=== PATIENT | male | born 1950 | race Caucasian/White ===

== ENCOUNTER 2017-02-15 12:20 | Emergency (ER) | payer BC ==
[2017-02-15 12:49] VITALS: BP 150/90
--- NOTE | 2017-02-15 12:58 | UC ---
Palpitation/Dysrhythmia HP - HPI Summary HPI Summary: 66 yo male with palpitations since last PM has had frequent palpitations in the past...they have never lasted this long no CP no SOB no weakness was able to do his usual one hour work out on an exercise bike this AM no recent URI symptoms HTN for a while for which he has tried herbal supplements - History of Current Complaint Chief Complaint: UCCardiac Stated Complaint: HEART PALPITATIONS Time Seen by Provider: 02/15/17 12:32 Hx Obtained From: Patient Onset/Duration: Sudden Onset, Lasting Hours Timing: Constant Severity Initially: Mild Severity Currently: Mild Pain Intensity: 0 Pain Scale Used: 0-10 Numeric Character: Skipped Beats Aggravating Factor(s): Nothing Alleviating Factor(s): Nothing Associated Signs & Symptoms: Positive: Negative - Allergy/Home Medications Allergies/Adverse Reactions: Allergies Allergy/AdvReac Type Severity Reaction Status Date / Time Tetracycline Allergy Nausea And Verified 02/15/17 12:31 Vomiting PMH/Surg Hx/FS Hx/Imm Hx Endocrine History Of: Denies: Diabetes, Thyroid Disease Cardiovascular History Of: Denies: Cardiac Disorders, Hypertension Respiratory History Of: Denies: COPD, Asthma - Surgical History Surgical History: Yes Surgery Procedure, Year, and Place: Right Ankle Repair - Family History Known Family History: Positive: Hypertension Negative: Cardiac Disease, Diabetes - Social History Alcohol Use: Occasionally Substance Use Type: None Smoking Status (MU): Former Smoker Review of Systems Constitutional: Negative Skin: Negative Eyes: Negative ENT: Negative Respiratory: Negative Cardiovascular: Palpitations Gastrointestinal: Negative Genitourinary: Negative Motor: Negative Neurovascular: Negative Musculoskeletal: Negative Neurological: Negative Psychological: Negative All Other Systems Reviewed And Are Negative: Yes Physical Exam Triage Information Reviewed: Yes Appearance: Well-Appearing, No Pain Distress, Well-Nourished Vital Signs: Initial Vital Signs Temp 99.2 F 02/15/17 12:25 Pulse 110 02/15/17 12:25 Resp 16 02/15/17 12:25 BP 193/93 02/15/17 12:25 Pulse Ox 96 02/15/17 12:25 Vital Signs Reviewed: Yes Eyes: Positive: Conjunctiva Clear ENT: Positive: Hearing grossly normal. Negative: Nasal congestion, Nasal drainage, Trismus, Muffled/hoarse voice Neck: Positive: Supple, Nontender, No Lymphadenopathy Respiratory: Positive: Chest non-tender, Lungs clear, Normal breath sounds, No respiratory distress, No accessory muscle use Cardiovascular: Positive: RRR, No Murmur Musculoskeletal: Positive: ROM Intact, No Edema Neurological: Positive: Alert Psychological Exam: Normal Skin Exam: Normal Diagnostics - EKG Cardiac Rate: Tachycardia Cardiac Rhythm: Sinus: Normal Ectopy: None ST Segment: Normal Palpitations Course/Dx - Differential Dx/Diagnosis Provider Diagnoses: palpitations. hypertension Discharge - Discharge Plan Condition: Stable Disposition: HOME Prescriptions: Nifedipine [Procardia Xl] 30 mg PO DAILY #30 tab Patient Education Materials: Palpitations (ED), Hypertension (ED) Referrals: Janna Garduno MD [Primary Care Provider] - Additional Instructions: see your MD this week recheck for chest pain/shortness of breath/feeling faint
[2017-02-15 16:22] LABS: Hematocrit 47 % (42-52); Hemoglobin 15.6 g/dl (14.0-18.0); Mean Corpuscular HGB Conc 34 g/dl (31-36); Mean Corpuscular Hemoglobin 30 pg (27-31); Mean Corpuscular Volume 88 fL (80-94); Mean Platelet Volume 9 um3 (7.4-10.4); Red Blood Count 5.29 10^6/ul (4.0-5.4); Red Cell Distribution Width 13 % (10.5-15)
[2017-02-15 16:38] LABS: TSH (Thyroid Stimulating Horm) 2.57 mcIU/mL (0.34-5.60)
[2017-02-15 16:40] LABS: BUN/Creatinine Ratio 12.4 (8-20); Calcium 9.2 mg/dL (8.6-10.3); EGFR Non-African American 65.3 (>60); Globulin 2.6 g/dL (2-4); Total Bilirubin 0.5 mg/dL (0.2-1.0); Total Protein 6.6 g/dL (6.4-8.9)
== END 2017-02-15 13:16 | disposition home or self-care (01) ==
LOC: UCEAST 12:20
DX: R00.2 Palpitations (principal); I10 Essential (primary) hypertension; Z88.1 Allergy status to other antibiotic agents; Z87.891 Personal history of nicotine dependence
CPT/HCPCS: 36415; 80053; 84443; 85025; 93005; 99202; G0463

== ENCOUNTER 2018-11-04 18:55 | Emergency (ER) | payer BC ==
--- NOTE | 2018-11-04 19:13 | UC ---
Respiratory Complaint HPI - HPI Summary HPI Summary: 68 y/o male presents to the urgent care c/o chest congestion w/ persistent productive cough for the past 2 week. Pt reports he has noticed this intermitting persistent cough several times during the year since he returned from [place] 10 years ago. Pt reports he produces a yellowish phlegm at times. Mild nasal congestion. He feels at times he can perform deep breathing. Pt has not taking anything to alleviate symptoms. Pt denies fever, PINON, dizziness , Chest pain, abdominal pain, N/V/D, visual changes. - History of Current Complaint Stated Complaint: CHEST CONGESTION Time Seen by Provider: 11/04/18 19:11 Hx Obtained From: Patient Onset/Duration: Gradual Onset, Lasting Weeks - 2 weeks, Still Present Timing: Intermittent Episodes Severity Initially: Mild Severity Currently: Moderate Pain Intensity: 0 Pain Scale Used: 0-10 Numeric Character: Cough: Productive, Sputum Description: - yellowish at times Aggravating Factors: Recumbent Position Alleviating Factors: Nothing Associated Signs And Symptoms: Positive: URI, Nasal Congestion - clear, Sinus Discomfort. Negative: Fever, Chills, Wheezing - Risk Factors Pulmonary Embolism Risk Factors: Negative Cardiac Risk Factors: Negative Pseudomonas Risk Factors: Negative Tuberculosis Risk Factors: Negative - Allergies/Home Medications Allergies/Adverse Reactions: Allergies Allergy/AdvReac Type Severity Reaction Status Date / Time tetracycline Allergy Nausea Verified 11/04/18 19:14 Home Medications: Home Medications amLODIPine TAB* [Norvasc 5 mg TAB*] 10 mg PO DAILY 11/04/18 [History Confirmed 11/04/18] PMH/Surg Hx/FS Hx/Imm Hx Previously Healthy: Yes Cardiovascular History: Hypertension - Surgical History Surgical History: Yes Surgery Procedure, Year, and Place: Right Ankle Repair - Family History Known Family History: Positive: Hypertension Negative: Cardiac Disease, Diabetes - Social History Occupation: Employed Full-time Lives: With Family Alcohol Use: Occasionally Substance Use Type: None Smoking Status (MU): Former Smoker Review of Systems All Other Systems Reviewed And Are Negative: Yes Constitutional: Positive: Negative Skin: Positive: Negative Eyes: Positive: Negative ENT: Positive: Nasal Discharge - clear, Sinus Congestion Respiratory: Positive: Cough - persistant productive cough w/ yellowish phlegm Cardiovascular: Positive: Negative Gastrointestinal: Positive: Negative Genitourinary: Positive: Negative Motor: Positive: Negative Neurovascular: Positive: Negative Musculoskeletal: Positive: Negative Neurological: Positive: Negative Psychological: Positive: Negative Is Patient Immunocompromised?: No Physical Exam - Summary Physical Exam Summary: Vital Signs Reviewed: Yes General: well developed, well nourished male sitting in the examining table w/o any apparent distress Eyes: Positive: Conjunctiva Clear - PERRLA, EOMI, fundi grossly normal ENT: Positive: Normal ENT inspection, Hearing grossly normal, Pharynx normal, Nasal congestion - edematous and erythematous nasal mucosa, Nasal drainage - yellowish drainage, TMs normal. Negative: Tonsillar swelling, Tonsillar exudate Neck: Positive: Supple, Nontender, No Lymphadenopathy Respiratory: no orthopnea or dyspnea. Able to speak in full sentences, no retractions or accessory muscle use, no tripod position, stridor, or head bobbing. Positive breath sounds bilaterally. B/L posterior upper lungs w/ mild rhonchi, no wheezing, no crackles or rales. Cardiovascular: Positive: RRR, No Murmur, Pulses Normal, Brisk Capillary Refill Abdomen Description: Positive: Nontender, No Organomegaly, Soft. Negative: CVA Tenderness (R), CVA Tenderness (L) Bowel Sounds: Positive: Present Musculoskeletal Exam: Normal Musculoskeletal: Positive: Strength Intact, ROM Intact, No Edema Neurological Exam: Normal Psychological Exam: Normal Skin Exam: Normal Triage Information Reviewed: Yes Respiratory Course/Dx - Course Course Of Treatment: 68 y/o male presents to the urgent care c/o chest congestion w/ persistent productive cough for the past 2 week. Pt reports he has noticed this intermitting persistent cough several times during the year since he returned from [place] 10 years ago. Pt reports he produces a yellowish phlegm at times. Mild nasal congestion. He feels at times he can perform deep breathing. Pt has not taking anything to alleviate symptoms. Pt denies fever, PINON, dizziness, Chest pain, abdominal pain, N/V/D, visual changes. Hx obtained. Pt w/ mild rhonchi on B/L posterior lungs. Chest X-ray Ordered: No Active cardiopulmonary disease observed, DR Sykes consulted on Chest X-ray and he also thinks it is negative an states possible Pt has a reactive airway disease. Pt Rx Z-ruth and albuterol inhaler to alleviate symptoms. Pt advised to f/u w/ his PCP for further management on his persistent cough. Pt's BP is elevated today advised to decrease salt in diet, monitor BP and f/u with PCP for further management. D/C instructions explained. Pt understood and [facility] - Differential Dx/Diagnosis Differential Diagnosis/HQI/PQRI: Bronchitis, Influenza, Lower Resp Infection, Sinusitis, Other - pneumonia Provider Diagnosis: Reactive airway disease that is not asthma, Acute bronchitis, Uncontrolled hypertension Discharge - Sign-Out/Discharge Documenting (check all that apply): Patient Departure - d/c home All imaging exams completed and their final reports reviewed: No - Discharge Plan Condition: Stable Disposition: HOME Prescriptions: Albuterol HFA INHALER* [Ventolin HFA Inhaler*] 1 - 2 puff INH Q6H PRN #1 mdi PRN Reason: Cough Azithromyxin RUTH (NF) [Z-Ruth (Zithromax) 250 mg tabs #6] 2 tab PO .TODAY, THEN 1 DAILY #6 tab Patient Education Materials: Acute Bronchitis (ED), Reactive Airways Disease ( ED) Referrals: Estrella Man MD [Primary Care Provider] - 3 Days Additional Instructions: 1-Please take full course of antibiotic to avoid resistance. 2- Use the albuterol inhaler to alleviate persistent cough. Increase fluid intake, rest and eat well. 3- If symptoms do not improve or worsen or your develop SOB with fever and severe wheezing please go immediately to the ER further evaluation and treatment. 4- Please F/u with your PCP in 1 week for further management on your symptoms you may be developing a reactive airway disease 5- Your BP is elevated today. please decrease salt in your diet, monitor BP and if it continues to be elevated please f/u with your PCP for further management. - Billing Disposition and Condition Condition: STABLE Disposition: Home
[2018-11-04 19:23] VITALS: BP 160/88
== END 2018-11-04 20:15 | disposition home or self-care (01) ==
LOC: UCEAST 18:55
DX: J45.909 Unspecified asthma, uncomplicated (principal); J20.9 Acute bronchitis, unspecified; I10 Essential (primary) hypertension; Z88.1 Allergy status to other antibiotic agents; Z87.891 Personal history of nicotine dependence
CPT/HCPCS: 71046; 99212; G0463